=== PATIENT | male | born 1975 ===

== ENCOUNTER → 2020-03-26 13:27 | Outpatient (BNVA) | payer OTHER, SELFPAY | PROVIDERS: Visit Provider Physician Assistant Medical | DX: T23.151A Burn of first degree of right palm, initial encounter (principal); X17.XXXA Contact with hot engines, machinery and tools, initial encounter | CPT/HCPCS: 90715; 99203 ==

== ENCOUNTER 2020-06-13 09:51 | Outpatient (REF) | payer MEDICAID, SELFPAY | END 2020-06-13 09:52 | disposition home or self-care (01) | LOC: HO.LAB 09:51 | PROVIDERS: PCP Internal Medicine; Visit Provider Internal Medicine | DX: Z20.822 Contact with and (suspected) exposure to COVID-19 (principal) | CPT/HCPCS: 36415; C9803; U0003 ==

== ENCOUNTER 2023-01-31 | Outpatient (REF) | payer OTHER, SELFPAY | END 2023-01-31 00:01 | disposition home or self-care (01) | LOC: HO.HHCLNP | PROVIDERS: Visit Provider Family Medicine | DX: R30.0 Dysuria (principal) | CPT/HCPCS: 87086 ==

== ENCOUNTER 2024-01-16 15:36 | Outpatient (AMB) | payer OTHER, SELFPAY ==
--- NOTE | 2024-01-16 15:30 | HO.NEPHOV ---
Vital Signs 01/16/24 15:32 01/16/24 15:48 Height 5 ft 5 in Weight 184 lb BMI 30.6 BP 128/92 H 124/82 Blood Pressure Location Lt brachial Lt brachial Position Sitting Sitting Pulse 69 Pulse Source Pulse Oximeter Pulse Oximetry (%) 99 Oxygen Delivery Method Room Air Intake Visit Reasons: CKD/ Continue Care/ Conf Nurse Quality Required: No Accompanied by: Self / Same As Patient Allergies No Known Allergies Allergy (Verified 01/16/24 15:38) Medication List - Last Reconciled 01/16/24 by Wero Gallardo MD losartan 100 mg PO BEDTIME HPI Comments Details: 49-year-old man with IgA nephropathy. Overall he has done very well. He is on losartan 100 mg a day. He is here for annual follow-up. No specific complaints [facility] Social History (Updated 01/16/24 @ 15:38 by ENRIQUETA Quintana) Comment: Occ Patient Tobacco Use Status: Never used Tobacco Physical Exam Vital Signs: Last Vital Signs Pulse 69 01/16/24 15:32 BP 124/82 01/16/24 15:48 Pulse Ox 99 01/16/24 15:32 Oxygen Delivery Method Room Air 01/16/24 15:32 BMI result Body Mass Index 30.6 Const General: comfortable; No acute distress Orientation/consciousness: patient oriented x3 Eyes General: appearance normal, both eyes and all related structures Visual Dutton: normal visual dutton by confrontation Neck Neck: Yes supple and Yes no JVD Resp Effort & Inspection: normal respiratory effort and respiratory effort not decreased Auscultation: rhonchi Cardio Palpation: no palpable S3 and no palpable S4 Heart sounds: no rubs GI Inspection: Yes normal to inspection Palpation (GI): Soft to palpation Percussion: Yes normal to percussion Auscultation: normal bowel sounds General: Yes no CVA tenderness Back/Spine/Pelvis Back: no CVA tenderness Skin General skin exam: no petechiae and no purpura Neuro General: patient oriented x3 and no focal motor deficits Extrem General: No clubbing and No edema Results Reviewed Results Reviewed: Urine protein creatinine ratio 451. Creatinine 1.07 Nephrology Results: No Data to Display Assessment & Plan Assessment & Plan (1) IgA deficiency: Code(s): D80.2 - Selective deficiency of immunoglobulin A [IgA] Category: Medical (2) Low testosterone: Code(s): R79.89 - Other specified abnormal findings of blood chemistry Category: Medical Plan 49-year-old man with IgA nephropathy Renal function stable He is on losartan for non nephrotic range proteinuria. Goal is to slow the progression of renal disease. Continue overt nephrotoxic agents Maintain blood pressure less than 130/80. No changes were made to her regimen. He has low testosterone I will refer him for endocrine evaluation. Used to be on testosterone supplementation while he was in [place]. Orders: Orders Creatinine Urine 1 Year D80.2 - Selective deficiency of immunoglobulin A [IgA] Basic Metabolic Panel 1 Year D80.2 - Selective deficiency of immunoglobulin A [IgA] Total Protein Urine Random 1 Year D80.2 - Selective deficiency of immunoglobulin A [IgA] Referrals Endocrinology Referral R79.89 - Other specified abnormal findings of blood chemistry Coding Level of Care Code Est Pt Level 4 (16715) Diagnoses IgA deficiency D80.2 Low testosterone R79.89
[2024-01-16 15:32] VITALS: BP 128/92; PULSE 69; O2SAT 99; BMI 30.6
[2024-01-16 15:48] VITALS: BP 124/82
== END 2024-01-16 15:53 | disposition home or self-care (01) ==
PROVIDERS: PCP Internal Medicine; Visit Provider Internal Medicine Hypertension Specialist
DX: D80.2 Selective deficiency of immunoglobulin A [IgA] (principal); R79.89 Other specified abnormal findings of blood chemistry
CPT/HCPCS: 99214

== ENCOUNTER → 2024-01-16 15:36 | Outpatient (BNVA) | payer OTHER, SELFPAY | PROVIDERS: PCP Internal Medicine; Visit Provider Internal Medicine Hypertension Specialist | DX: D80.2 Selective deficiency of immunoglobulin A [IgA] (principal); R79.89 Other specified abnormal findings of blood chemistry | CPT/HCPCS: 99212 ==

== ENCOUNTER 2024-01-24 14:35 | Outpatient (AMB) | payer OTHER, SELFPAY ==
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
[2024-01-24 14:42] VITALS: BP 114/84; PULSE 65; BMI 30.9
== END 2024-01-24 15:45 | disposition home or self-care (01) ==
PROVIDERS: PCP Internal Medicine; Visit Provider Student in an Organized Health Care Education/Training Program
DX: R79.89 Other specified abnormal findings of blood chemistry (principal); E29.1 Testicular hypofunction; E23.7 Disorder of pituitary gland, unspecified
CPT/HCPCS: 99205

== ENCOUNTER → 2024-01-24 14:35 | Outpatient (BNVA) | payer OTHER, SELFPAY | PROVIDERS: PCP Internal Medicine; Visit Provider Student in an Organized Health Care Education/Training Program | DX: R79.89 Other specified abnormal findings of blood chemistry (principal); E29.1 Testicular hypofunction; E23.7 Disorder of pituitary gland, unspecified | CPT/HCPCS: 99202 ==

== ENCOUNTER 2025-01-07 09:35 | Outpatient (AMB) | payer OTHER, SELFPAY ==
[2025-01-07 09:37] VITALS: BP 110/82; PULSE 66; O2SAT 97; BMI 30.4
--- NOTE | 2025-01-07 09:37 | HO.NEPHOV ---
Vital Signs 01/07/25 09:37 Height 5 ft 5 in Weight 183 lb BMI 30.4 BP 110/82 Blood Pressure Location Lt brachial Position Sitting Pulse 66 Pulse Source Pulse Oximeter Pulse Oximetry (%) 97 Oxygen Delivery Method Room Air Intake Visit Reasons: CKD-Conf Supervisor Electric Motor Testing Required: No Accompanied by: Self / Same As Patient Allergies No Known Allergies Allergy (Verified 01/07/25 09:39) Medication List - Last Reconciled 01/07/25 by Wero Gallardo MD losartan 100 mg PO BEDTIME HPI Comments Details: 49-year-old man with IgA nephropathy. Overall he has done very well. He is on losartan 100 mg a day. He is here for annual follow-up. No specific complaints 01/07/25 The patient is a 50-year-old male presenting with a follow-up for IgA nephropathy. He is compliant with losartan 100 mg daily for hypertension, with stable blood pressure at 110/82 mmHg. He denies urinary symptoms or edema. Kidney function is stable with creatinine at 0.98 mg/dL. He adheres to dietary recommendations, including low salt intake and adequate hydration. MEDICATIONS: - Losartan 100 mg daily for hypertension DIAGNOSTIC RESULTS: - Labs: Creatinine 0.98 mg/dL indicating stable kidney function [facility] Medical History (Updated 01/24/24 @ 16:01 by Jolynn Frias MD) Pituitary dysfunction Hypogonadism in male Social History Comment: [facility] Patient Tobacco Use Status: Never used Tobacco Physical Exam Vital Signs: BMI result Body Mass Index 30.4 Const General: comfortable; No acute distress Orientation/consciousness: patient oriented x3 Eyes General: appearance normal, both eyes and all related structures Visual Dutton: normal visual dutton by confrontation Neck Neck: Yes supple and Yes no JVD Resp Effort & Inspection: normal respiratory effort and respiratory effort not decreased Auscultation: rhonchi Cardio Palpation: no palpable S3 and no palpable S4 Heart sounds: no rubs GI Inspection: Yes normal to inspection Palpation (GI): Soft to palpation Percussion: Yes normal to percussion Auscultation: normal bowel sounds General: Yes no CVA tenderness Back/Spine/Pelvis Back: no CVA tenderness Skin General skin exam: no petechiae and no purpura Neuro General: patient oriented x3 and no focal motor deficits Extrem General: No clubbing and No edema Results Reviewed Results Reviewed: Urine protein creatinine ratio 451. Creatinine 1.07 Assessment & Plan Assessment & Plan (1) IgA deficiency: Code(s): D80.2 - Selective deficiency of immunoglobulin A [IgA] Category: Medical (2) Low testosterone: Code(s): R79.89 - Other specified abnormal findings of blood chemistry Category: Medical Plan 49-year-old man with IgA nephropathy Renal function stable He is on losartan for non nephrotic range proteinuria. Goal is to slow the progression of renal disease. Continue overt nephrotoxic agents Maintain blood pressure less than 130/80. No changes were made to her regimen. He has low testosterone I will refer him for endocrine evaluation. Used to be on testosterone supplementation while he was in [place]. 01/07/25 Stable - Continue losartan 100 mg daily. - Maintain low salt diet and hydration. - Report any leg swelling or urinary changes. - Follow-up in one year unless symptoms develop. Orders: Orders Creatinine Urine 1 Year D80.2 - Selective deficiency of immunoglobulin A [IgA] Basic Metabolic Panel 1 Year D80.2 - Selective deficiency of immunoglobulin A [IgA] UA and rflx microscopic 1 Year D80.2 - Selective deficiency of immunoglobulin A [IgA] Total Protein Urine Random 1 Year D80.2 - Selective deficiency of immunoglobulin A [IgA] Medications: Refilled losartan 100 mg PO BEDTIME 90 tabs 3RF Coding Level of Care Code Est Pt Level 4 (20997) Diagnoses IgA deficiency D80.2 Low testosterone R79.89
--- OUTSIDE RECORDS SUMMARY | 2025-01-07 10:10 | XMS_ITS | Clinical Summary ---
Author Organization [employer] Address [address] [place] [address] Care Team Providers Care Rn Dermatology Name Role Phone Regino Verde MD Primary Care Provider [phone] Allergies No known active allergies Medications losartan (Cozaar) 100 MG tablet 2 Active omega-3 (Fish Oil) 1000 MG capsule Take 1,000 mg by mouth 2 times daily. 2 Active rosuvastatin (Crestor) 40 MG tabletIndications :Hypercholesterol emia Take 1 tablet (40 mg) by mouth in the morning. 30 tablet 11 3 Active triamcinolone (Kenalog) 0.1 % ointmentIndicatio ns:Spongiotic psoriasiform dermatitis Apply topically 2 times daily. 30 g 4 Active tiZANidine (Zanaflex) 2 MG tabletIndications :Perineal pain in male Take 1 tablet (2 mg) by mouth at bedtime. 30 tablet 5 Active Active Problems Problem Noted Date Diagnosed Date Hypertensive disorder 09/19/2020 IgA nephropathy 07/02/2020 Proteinuria 07/02/2020 Social History Tobacco Use Types Packs/Day Years Used Date Smoking Tobacco: Never Smokeless Tobacco: Never Tobacco Cessation:Counseling Given: No Depression Answer Date Recorded Patient Health Questionnaire-9 Score 0 09/15/2023 Patient Health Questionnaire-9 Score 0 09/15/2023 Last PHQ-9: Questionnaire Data Not on file 0 09/15/2023 Housing Stability Answer Date Recorded What is your housing situation today? I have edward nichols 09/08/[address] you li ve. Do you have problems with any of the following? None of the above 09/08/2023 Food Insecurity Answer Date Recorded Within the past 12 months, y ou worried that your food would run out before you got money to buy more: Never True 09/08/2023 Within the past 12 months,th e food you bought just didn't last and you didn't have enough money to get more: Never True Transportation Answer Date Recorded In the past 12 months, has l ack of transportation kept you from medical appts, meetings, work or from getting things needed for daily living? No 09/08/2023 Utilities Answer Date Recorded In the past 12 months, has t he electric, gas, oil or water company threatened to shut off services in your home? No 09/08/2023 Depression Answer Date Recorded Patient Health Questionnaire-2 Score 0 09/15/2023 Sex and Gender Information Value Date Recorded Sex Assigned at Male 03/22/2022 10:32 AM EDT Legal Sex Male 10:32 AM EDT Gender Identity Male 03/22/2022 10:32 AM EDT Sexual Orientation Straight 03/22/2022 10 :32 AM EDT Last Filed Vital Signs Vital Sign Reading Time Taken Comments Blood Pressure 120/82 06/05/2024 3:49 PM EST Pulse 71 06/05/2024 3:49 PM EST Temperature 36.7 C (98 F) 06/05/2024 3:49 PM EST Respiratory Rate 20 06/05/2024 3:49 PM EST Oxygen Saturation 98% 06/05/2024 3:49 PM EST Inhaled Oxygen Concentration - - Weight 84.8 kg (187 lb) 06/05/2024 3:49 PM EST Height 165.7 cm (5' 5.25 ) 06/05/2024 3:49 PM ES T Body Mass Index 30.88 06/05/2024 3:49 PM EST Plan of Treatment Health Maintenance Due Date Last Done Comments CT Colonography 1977 Colonoscopy 1977 FIT 1977 FOBT 1977 HIV Screening 1977 Sigmoidoscopy 1977 Alcohol/Substance Use Screening 1989 Family Planning (PISQ) 01/08/1992 Hepatitis C Screening 1995 Hepatitis B Vaccines (2 of 3 - 19+ 3-dose series) 07/01/2017 06/03/2017 COVID-19 Vaccine (2023-2 5 season) 2024 03/27/2021, 08/30/2020, 08/07/2020 SDOH Screening 09/07/2024 09/08/2023 Depression Screening 09/14/2024 09/15/2023, 09/15/2023 Influenza Vaccine (#1) 2025 , 04/09/2020 Tobacco Screening 06/05/2025 06/05/2024 Disability Screening 06/13/2025 06/13/2024 Colorectal Cancer Screening 10/23/2026 FIT DNA/Cologuard 10/23/2026 10/24/2023 Zoster Vaccines (1 of 2) 2027 Lipid Panel 08/28/2027 08/27/2022 DTaP/Tdap/Td Vaccines (3 - T d or Tdap) 12/22/2032 12/22/2022, 03/26/2020 RSV Patients and Patients Aged 60 years or older (1 - 1-dose 75+ series) 01/08/2052 HIB Vaccines Aged Out No longer eligi ble based on patient's age to complete this topic HPV Vaccines Aged Out No longer eligi ble based on patient's age to complete this topic Hepatitis A Vaccines Aged Out No long er eligible based on patient's age to complete this topic IPV Vaccines Aged Out No longer eligi ble based on patient's age to complete this topic Meningococcal B Vaccine Aged Out No l onger eligible based on patient's age to complete this topic Meningococcal Vaccine Aged Out No alia mack eligible based on patient's age to complete this topic Pneumococcal Vaccine: Pediatrics (0 to 5 Years) and At-Risk Patients (6 to 49) Years Aged Out No longer eligible b ased on patient's age to complete this topic RSV under 20 months Aged Out No longe r eligible based on patient's age to complete this topic Rotavirus Vaccines Aged Out No longer eligible based on patient's age to complete this topic Procedures Procedure Name Priority Date/Time Associated Diagnosis Comments LAB COLOGUARD COLON CANCER SCREEN Routine 10/24/2023 7:00 AM EDT Screening for colon cancer LIPID PANEL, STANDARD Routine 08/27/2022 10:35 AM EDT Primary hypertension from Last 3 Months or Most Recently Relevant to Health Maintenance Results * Cologuard?? colon cancer screening (10/24/2023 7:00 AM EDT) Cologuard Result Negative Negative 10/28/19 11:00 AM EDT [email or web address] (CLIA #:[id number]) Comment: NEGATIVE TEST RESULT. A negative Cologuard result indicates a low likelihood that a colorectal cancer (CRC) or advanced adenoma (adenomatous polyps with more advanced pre-malignant features) is present. The chance that a person with a negative Cologuard test has a colorectal cancer is less than 1 in 1500 (negative predictive value >99.9%) or has an advanced adenoma is less than 5.3% (negative predictive value 94.7%). These data are based on a prospective cross-sectional study of 10,000 individuals at average risk for colorectal cancer who were screened with both Cologuard and colonoscopy. (David Liu al, N Engl J Med 2014;370(14):1110-9359) The normal value (reference range) for this assay is negative. COLOGUARD RE-SCREENING RECOMMENDATION: Periodic colorectal cancer screening is an important part of preventive healthcare for asymptomatic individuals at average risk for colorectal cancer. Following a negative Cologuard result, the [place] [employer] and U.S. Multi-Society Task Force screening guidelines recommend a Cologuard re-screening interval of 3 years. References: [place] [employer] Guideline for Colorectal Cancer Screening: https://www.cancer.org/cancer/vjboh-vvgbzo-pkfkpo/gxzvhjtdc-gwcdxxbda-ydadpur/ac s-rec ommendations.html.; Tim DK, Aisha CR, Leslie AlvaK, Colorectal Cancer Screening: Recommendations for Physicians and Patients from the U.S. Multi-Society Task Force on Colorectal Cancer Screening , Am J Gastroenterology 2017; 112:5165-1857. TEST DESCRIPTION: Composite algorithmic analysis of stool DNA-biomarkers with hemoglobin immunoassay. Quantitative values of individual biomarkers are not reportable and are not associated with individual biomarker result reference ranges. Cologuard is intended for colorectal cancer screening of adults of either sex, 45 years or older, who are at average-risk for colorectal cancer (CRC). Cologuard has been approved for use by the U.S. FDA. The performance of Cologuard was established in a cross sectional study of average-risk adults aged 50-84. Cologuard performance in patients ages 45 to 49 years was estimated by sub-group analysis of near-age groups. Colonoscopies performed for a positive result may find as the most clinically significant lesion: colorectal cancer [4.0%], advanced adenoma (including sessile serrated polyps greater than or equal to 1cm diameter) [20%] or non- advanced adenoma [31%]; or no colorectal neoplasia [45%]. These estimates are derived from a prospective cross-sectional screening study of 10,000 individuals at average risk for colorectal cancer who were screened with both Cologuard and colonoscopy. (David Liu al, N Engl J Med 2014;370(14):7938-7376.) Cologuard may produce a false negative or false positive result (no colorectal cancer or precancerous polyp present at colonoscopy follow up). A negative Cologuard test result does not guarantee the absence of CRC or advanced adenoma (pre-cancer). The current Cologuard screening interval is every 3 years. ([place] [employer] and U.S. Multi-Society Task Force). Cologuard performance data in a 10,000 patient pivotal study using colonoscopy as the reference method can be accessed at the following location: www.[employer]/results. Additional description of the Cologuard test process, warnings and precautions can be found at www.[employer].com. Stool specimen (specimen) 10/24/2023 7:00 AM EDT 10/25/2023 1:42 PM EDT us Regino Verde MD LAB MOLECULAR DIAGNOSTICS O RDERABLES Final Result [email or web address] (CLIA #:[id number]) [place] [address], * (ABNORMAL) Lipid Panel, Standard (08/27/2022 10:35 AM EDT) [facility] Cholesterol, Total 303(H) <200 mg/dL [facility] [place] [facility] HDL Cholesterol 36(L) > OR = 40 mg/dL [facility] [place] Triglycerides 284(H) <150 mg/dL [facility] [place] [facility] Comment: If a non-fasting specimen was collected, consider repeat triglyceride testing on a fasting specimen if clinically indicated. Dolores hill al. J. of Clin. Lipidol. 2015;9:129-169. LDL Cholesterol 216(H) mg/dL (calc) [facility] [place] [facility] Comment: LDL-C levels > or = 190 mg/dL may indicate familial hypercholesterolemia (FH). Clinical assessment and measurement of blood lipid levels should be considered for all first degree relatives of patients with an FH diagnosis. For questions about testing for familial hypercholesterolemia, please call [employer] [facility] at [phone].Gyst.INFO. Dolores Vaughan, et al. J National Lipid Association Recommendations for Patient-Centered Management of Dyslipidemia: Part 1 Journal of Clinical Lipidology 2015;9(2), 129-169. Reference range: <100 Desirable range <100 mg/dL for primary prevention; <70 mg/dL for patients with CHD or diabetic patients with > or = 2 CHD risk factors. LDL-C is now calculated using the Jeremie-Gilmore calculation, which is a validated novel method providing better accuracy than the Friedewald equation in the estimation of LDL-C. Jeremie SS et al. LUCI. 2013;310(19): 1506-8447 (http://education.Sample[employer] Inc/faq/GXQ536) Chol/HDLC Ratio 8.4(H) <5.0 (calc) [facility] [place] [facility] Non-HDL Cholesterol 267(H) <130 mg/dL (calc) [facility] [place] [facility] Comment: Non-HDL level > or = 220 is very high and may indicate genetic familial hypercholesterolemia (FH). Clinical assessment and measurement of blood lipid levels should be considered for all first-degree relatives of patients with an FH diagnosis. For patients with diabetes plus 1 major ASCVD risk factor, treating to a non-HDL-C goal of <100 mg/dL (LDL-C of <70 mg/dL) is considered a therapeutic option. Blood Venous blood specimen / Unknown 08/27/2022 10:35 AM EDT 08/27/2022 10:36 AM EDT Narrative [facility] - 08/27/2022 8:59 PM EDT FASTING:YES FASTING: YES Regino Verde MD LAB BLOOD ORDERABLES Final Result [facility] [address], [place] [address] [facility] [address] [place] [address] from Last 3 Months or Most Recently Relevant to Health Maintenance Insurance [address] [id number] PLAN Care Teams Rn Dermatology Relationship Specialty Start Date End Date Regino Verde MD [address] [place] [id number] PCP - General Internal Medicine 07/21/18
--- OUTSIDE RECORDS SUMMARY | 2025-01-07 10:10 | XMS_ITS | Clinical Summary ---
Author Organization [facility] Address [address] [place] [address] Phone Care Team Providers Care Labor Relations Or Personnel Negotiator Name Role Phone Regino Verde MD Primary Care Provider [phone] Allergies No known active allergies Medications sildenafil (Viagra) 25 MG tablet Take 1 tablet (25 mg total) by mouth 1 (one) time each day if needed for erectile dysfunction 10 tablet 2 Active Dapagliflozin Propanediol (Farxiga) 10 MG tablet Take 10 mg by mouth 1 (one) time each day 90 tablet 2 4 Active losartan (COZAAR) 100 MG tabletIndication s:Hypertension Take 1 tablet (100 mg total) by mouth 1 (one) time each day 90 tablet 3 4 Active Active Problems Problem Noted Date Diagnosed Date IgA nephropathy 07/02/2020 Proteinuria 07/02/2020 Immunizations Immunization Administration Dates Next Due Influenza, Quadrivalent, Preservative Free 04/09 Family History Medical History Relation Comments Diabetes Father on Dialysis Kidney disease Father Relation Status Comments Father Alive Mother Social History Tobacco Use Types Packs/Day Years Used Date Smoking Tobacco: Never Smokeless Tobacco: Never Tobacco Cessation:Counseling Given: Not Answered Alcohol Use Standard Drinks/Week Comments Yes 0 (1 standard drink = 0.6 oz pure alcohol) Alcoholic Drinks/day: Occasional social drink Sex and Gender Information Value Date Recorded Sex Assigned at Not on file Legal Sex Male 4:51 PM EST Gender Identity Not on file Sexual Orientation Not on file Last Filed Vital Signs Vital Sign Reading Time Taken Comments Blood Pressure 127/67 10/03/2023 3:59 PM EDT Pulse 62 10/03/2023 3:59 PM EDT Temperature - - Respiratory Rate - - Oxygen Saturation 97% 10/03/2023 3:59 PM EDT Inhaled Oxygen Concentration - - Weight 83.2 kg (183 lb 6.4 oz) 10/03/2023 3:59 P M EDT Height 167.6 cm (5' 6 ) 06/25/2019 12:00 PM EST Body Mass Index 29.6 06/25/2019 12:00 PM EST Plan of Treatment Health Maintenance Due Date Last Done Comments Hepatitis B Vaccine (1 of 3 - 19+ 3-dose series) 01/07 Pneumococcal Vaccine: Peds ( 0 to 5 Years) and At-Risk Patients (6 to 49 Years) (1 of 2 - PCV) 01/08/1996 Influenza Vaccine (#1) 2025 04/09/2020 Insurance Medicaid Medicaid Care Teams Labor Relations Or Personnel Negotiator Relationship Specialty Start Date End Date Regino Verde MD [address] [place] [id number] PCP - General Internal Medicine 12/27/22
== END 2025-01-07 09:47 | disposition home or self-care (01) ==
LOC: HO.HKA 09:35
PROVIDERS: PCP Internal Medicine; Visit Provider Internal Medicine Hypertension Specialist
DX: D80.2 Selective deficiency of immunoglobulin A [IgA] (principal); R79.89 Other specified abnormal findings of blood chemistry
CPT/HCPCS: 99214

== ENCOUNTER → 2025-01-07 09:35 | Outpatient (BNVA) | payer OTHER, SELFPAY | PROVIDERS: PCP Internal Medicine; Visit Provider Internal Medicine Hypertension Specialist | DX: D80.2 Selective deficiency of immunoglobulin A [IgA] (principal); R79.89 Other specified abnormal findings of blood chemistry | CPT/HCPCS: 99212 ==